=== PATIENT | male | born 1990 | race African-American/Black ===

== ENCOUNTER 2021-10-05 16:55 | Emergency (ER) | payer MEDICAID ==
[~2021-10-05] VITALS: Ht 180.3 cm; Wt 68.0 kg
[2021-10-05] MEDS ORDERED: TETANUS, DIPHTHERIA, PERTUSSIS VAC/PF 0.5ML (>10YR OLD) IM ONE ×2 (20:15→21:23)
[2021-10-05] MEDS ORDERED: BACITRACIN ZINC OINT UDPKT TOP ONE (20:15)
[2021-10-05] MEDS ORDERED: LIDOCAINE HCL/EPINEPHRINE 1%-EPI 1:100,000 20 ML VIAL INFIL ONE (20:15)
[2021-10-05] MEDS ORDERED: LIDOCAINE HCL/EPINEPHRINE 1%-EPI 1:100,000 20 ML VIAL INFIL NR (21:23)
[2021-10-05] MEDS ORDERED: BACITRACIN ZINC OINT UDPKT TOP NR (21:23)
[2021-10-05] MEDS ORDERED: IBUPROFEN 600MG TABLET PO ONE (21:30)
[2021-10-05 23:14] VITALS: BP 116/69
== END 2021-10-05 21:02 | disposition home or self-care (01) ==
LOC: ER 16:55
DX: S61.511A Laceration without foreign body of right wrist, initial encounter (principal); W25.XXXA Contact with sharp glass, initial encounter; Y93.89 Activity, other specified; Y92.89 Other specified places as the place of occurrence of the external cause
CPT/HCPCS: 12001; 73110; 90471; 90715; 99283; J3490